=== PATIENT | male | born 1935 | race Caucasian/White ===

== ENCOUNTER 2019-04-17 10:40 | Emergency (ER) | payer MEDICARE, OTHER ==
[~2019-04-17] VITALS: Ht 162.6 cm; Wt 56.7 kg
--- NOTE | 2019-04-17 12:22 | Diagnostic Imaging Report ---
EXAM: RIBS UNILAT W/CXR- HOPD DATE: 04/17/2019 12:00 AM INDICATION: Left-sided rib pain COMPARISON: None FINDINGS: Frontal view the chest as well as several projection of the left rib cage were obtained. There are postsurgical changes from prior median sternotomy. Multiple surgical clips noted overlying the mediastinum. The trachea is midline. The lungs are symmetrically without evidence for large focal consolidation, pneumothorax, or significant pleural effusion. The cardiomediastinal silhouette is within normal limits. Atherosclerotic calcific changes are noted within the thoracic aorta. No acute osseous abnormality is identified. Specifically, no radiographically evident rib fracture is identified. IMPRESSION: No acute cardiopulmonary process identified. No radiographically evident rib fracture identified. Signed by: Dr. Fabian Costa MD on 04/17/2019 12:20 PM
[2019-04-17 12:32] VITALS: BP 157/89
== END 2019-04-17 12:34 | disposition home or self-care (01) ==
LOC: FSED 10:40
DX: R07.89 Other chest pain (principal); I25.10 Atherosclerotic heart disease of native coronary artery without angina pectoris; Z95.1 Presence of aortocoronary bypass graft; G40.909 Epilepsy, unspecified, not intractable, without status epilepticus
CPT/HCPCS: 71101; 99283

== ENCOUNTER 2019-04-19 17:12 | Emergency (ER) | payer MEDICARE, OTHER ==
[~2019-04-19] VITALS: Ht 162.6 cm; Wt 56.7 kg
--- OUTSIDE RECORDS SUMMARY | 2019-04-19 17:16 | XMS REPORT ---
Author Author [facility] Address Unknown Phone Unavailable Care Team Providers Care Machine Inker Name Role Phone Juan Jose LEY Unavailable Unavailable Problems This patient has no known problems. Allergies, Adverse Reactions, Alerts This patient has no known allergies or adverse reactions. Medications This patient has no known medications. Results Test Description Test Time Test Comments Text Results Atomic Results Result Comments RIBS UNILAT W/CXR- HOPD 2019-04-17 12:17:00 [place] [address] Patient Name: MIGNON COREY MR #: [id number] : 1935 Age/Sex: 84/M Req #: [id number] [facility] Physician: Ordered by: CARLINE LEY MD Report #: [id number] Location: [facility] Room/Bed: Procedure: [id number] HOPD/RIBS UNILAT W/CXR- HOPD Exam Date: 04/17/19 Exam Time: 1130 REPORT STATUS: Signed EXAM: RIBS UNILAT W/CXR- HOPD DATE: 04/17/2019 12:00 AM INDICATION: Left-sided rib pain COMPARISON: None FINDINGS: Frontal view the chest as well as several projection of the left rib cage were obtained. There are postsurgical changes from prior median sternotomy. Multiple surgical clips noted overlying the mediastinum. The trachea is midline. The lungs are symmetrically without evidence for large focal consolidation, pneumothorax, or significant pleural effusion. The cardiomediastinal silhouette is within normal limits. Atherosclerotic calcific changes are noted within the thoracic aorta. No acute osseous abnormality is identified. Specifically, no radiographically evident rib fracture is identified. IMPRESSION: No acute cardiopulmonary process identified. No radiographically evident rib fracture identified. Signed by: Dr. Fabian Sultana MD on 04/17/2019 12:20 PM Dictated By: FABIAN SULTANA MD 1220 Transcribed By: MICHAEL on 04/17/19 1220 COPY TO: CARLINE LEY MD
[2019-04-19] MEDS ORDERED: LIDOCAINE 4% PATCH TP ONE (17:30)
[2019-04-19] MEDS ORDERED: DEXAMETHASONE SOD PHOS 10 MG/1 ML VIAL IV ONE (17:30)
[2019-04-19 18:08] LABS: BASOPHILS % 0.6 % (0.0-1.0); EOSINOPHILS # (AUTO) 0.1 (0.0-0.4); EOSINOPHILS % 1.9 % (0.0-6.0); HEMATOCRIT 37.4 % (38.2-49.6); HEMOGLOBIN 12.7 g/dL (14.0-18.0); LYMPHOCYTES # (AUTO) 1.3 (1.0-3.2); LYMPHOCYTES % 26.9 % (18.0-39.1); MEAN CORPUSCULAR HEMOGLOBIN 31.8 pg (28-32); MEAN CORPUSCULAR VOLUME 93.7 fL (81-99); MONOCYTES # (AUTO) 0.8 (0.2-0.8); MONOCYTES % 16.6 % (4.4-11.3); NEUTROPHILS # (AUTO) 2.5 (2.1-6.9); NEUTROPHILS % 53.8 % (38.7-80.0); PLATELET COUNT 155 x10e3/uL (140-360); RED BLOOD COUNT 3.99 x10e6/uL (4.3-5.7); RED CELL DISTRIBUTION WIDTH 12.8 % (11.7-14.4)
[2019-04-19 18:20] LABS: INR 0.92; PROTHROMBIN TIME 12.9 seconds (11.9-14.5)
[2019-04-19 18:21] LABS: PARTIAL THROMBOPLASTIN TIME 33.1 seconds (23.8-35.5)
[2019-04-19 18:26] LABS: ALBUMIN 4.2 g/dL (3.5-5.0); ALBUMIN/GLOBULIN RATIO 1.7 (0.8-2.0); ANION GAP 10.4 mmol/L (8-16); CALCIUM 9.6 mg/dL (8.4-10.2); CREATININE, SERUM 1.2 mg/dL (0.72-1.25); MAGNESIUM 1.9 MG/DL (1.3-2.1); POTASSIUM 4.4 mmol/L (3.5-5.1)
[2019-04-19 18:32] LABS: CREATINE KINASE MB 0.9 ng/mL (0-5.0)
--- NOTE | 2019-04-19 18:36 | Diagnostic Imaging Report ---
EXAMINATION: CT scan of the chest without contrast. TECHNIQUE: Spiral CT images of the chest were performed from the lung apices to the level of the adrenal glands. No intravenous contrast was administered per physician's request. Coronal and sagittal reformatted images were obtained. COMPARISON: RIBS series 04/17/2019 CLINICAL HISTORY:Left lower anterior rib pain DISCUSSION: ABSENCE OF INTRAVENOUS CONTRAST DECREASES SENSITIVITY FOR DETECTION OF FOCAL LESIONS AND VASCULAR PATHOLOGY. LINES/TUBES: None. LUNGS AND AIRWAYS: The lungs are grossly clear. No pulmonary nodules, masses or consolidation. The airways are clear, without endobronchial lesions. PLEURA: No pneumothorax or pleural effusions. HEART AND MEDIASTINUM: The thyroid gland is normal. Heart size is normal. No pericardial effusion. Ectasia of the ascending thoracic aorta. Mild atherosclerotic calcification of the aortic arch and descending aorta. Atherosclerotic calcification of the coronary arteries. Postoperative CABG changes. LYMPH NODES: No mediastinal or axillary adenopathy. Difficult to assess for hilar adenopathy given the lack of intravenous contrast. ABDOMEN: See CT abdomen and pelvis performed same day for further detail. BONES AND SOFT TISSUES: No acute, displaced fracture or dislocation. No lytic, blastic or expansile bony lesion. Soft tissues are grossly unremarkable. Midline sternotomy wires. IMPRESSION: 1. No acute osseous or soft tissue abnormality. 2. Lungs are grossly clear. 3. Ectasia of the ascending aorta. Signed by: Dr. Ramiro Presley M.D. on 04/19/2019 6:33 PM
--- NOTE | 2019-04-19 19:14 | Diagnostic Imaging Report ---
EXAMINATION: CT of the abdomen and pelvis without contrast. TECHNIQUE: Spiral CT images of the abdomen and pelvis were performed from the lung bases to the lesser trochanters. No intravenous contrast was given per renal stone protocol. Coronal and sagittal reformatted images were obtained. COMPARISON: None. CLINICAL HISTORY:Left flank pain radiating to left lower chest DISCUSSION: ABSENCE OF INTRAVENOUS CONTRAST DECREASES SENSITIVITY FOR DETECTION OF FOCAL LESIONS AND VASCULAR PATHOLOGY. ABDOMEN/PELVIS: LOWER THORAX: Please see CT chest performed same date for further detail. HEPATOBILIARY: 2.0 cm fluid density simple cyst in hepatic segment VII (axial image 37). Lobulated 3.4 x 2.3 cm fluid density simple cyst in hepatic segment V (axial image 55). No intra or extrahepatic biliary ductal dilation. GALLBLADDER: Cholecystectomy clips. SPLEEN: No splenomegaly. PANCREAS: No focal masses or ductal dilatation. ADRENALS: No adrenal nodules. KIDNEYS/URETERS: No renal or ureteral calculi, hydronephrosis or obstruction. Cortical scarring in the left superior pole No other contour abnormalities or significant perinephric stranding. PELVIC ORGANS/BLADDER: Mild circumferential bladder wall thickening likely secondary to bladder outlet obstruction from mildly enlarged prostate. Prostate measures approximately 4.6 x 3.9 x 3.9 cm (estimated volume 36 mL).. PERITONEUM/RETROPERITONEUM: No free air or fluid. LYMPH NODES: No intra-abdominal,retroperitoneal, pelvic or inguinal lymphadenopathy. VESSELS: Atherosclerotic calcification of the abdominal aorta and proximal iliac vessels. GI TRACT: No bowel dilation or evidence of obstruction. 2. Chronic inflammatory changes. Moderate retained stool in the colon. BONES AND SOFT TISSUES: No aggressive lytic lesions. Well-circumscribed 2.6 cm lucent lesion in the posterior aspect of the right iliac bone has a nonaggressive appearance. No associated mass effect or cortical breakthrough. Generalized osteopenia. Posterior fusion hardware and intervertebral disc spacers L3-S1. Soft tissues are grossly unremarkable. IMPRESSION: 1. No renal, ureteral or bladder calculi, hydronephrosis or obstruction. 2. Simple hepatic cysts. Signed by: Dr. Ramiro Presley M.D. on 04/19/2019 7:11 PM
[2019-04-19 20:05] VITALS: BP 160/74
== END 2019-04-19 20:06 | disposition home or self-care (01) ==
LOC: ER 17:12
DX: R07.89 Other chest pain (principal); M79.18 Myalgia, other site; I77.819 Aortic ectasia, unspecified site; G40.909 Epilepsy, unspecified, not intractable, without status epilepticus
CPT/HCPCS: 36415; 71250; 74176; 80053; 82550; 82553; 83735; 84484; 85025; 85610; 85730; 93005; 99284; J1100

== ENCOUNTER 2019-04-23 08:46 | Emergency (ER) | payer MEDICARE, OTHER ==
[~2019-04-23] VITALS: Ht 162.6 cm; Wt 56.7 kg
== END 2019-04-23 09:54 | disposition home or self-care (01) ==
LOC: ER 08:46
DX: B02.9 Zoster without complications (principal); I10 Essential (primary) hypertension
CPT/HCPCS: 99282